=== PATIENT | female | born 1975 | race Two or more races ===

== ENCOUNTER → 2018-07-26 | Outpatient (CLI) | payer BC ==
[2018-07-27 13:50] LABS: RPR Non Reactive (Non Reactive)
== END | disposition home or self-care (01) ==
LOC: LAB 10:52
PROVIDERS: ATTEND Obstetrics & Gynecology
DX: N76.0 Acute vaginitis (principal); Z20.2 Contact with and (suspected) exposure to infections with a predominantly sexual mode of transmission
CPT/HCPCS: 86592; 86695; 86696; 86703; 87070